=== PATIENT | male | born 1985 | race Caucasian/White ===

== ENCOUNTER 2017-07-30 15:17 | Inpatient (IN) | payer OTHER ==
[2017-07-30] MEDS ORDERED: ZOFRAN IV ONE (17:40)
[2017-07-30] MEDS ORDERED: ATIVAN IV ONE (17:49)
[2017-07-30] MEDS ORDERED: VITAMIN B-1 100 MG, FOLVITE 1 MG, INFUVITE 10 ML in NACL 0.9% 1000 ML 1,000 ML IV ONE (17:54)
--- NOTE | 2017-07-30 18:25 | Emergency Department Report ---
ED General Adult HPI - General Chief complaint: Chest Pain Stated complaint: SHAKING ALL OVER Time Seen by Provider: 07/30/17 17:53 Source: RN/MD, EMS Mode of arrival: Stretcher Limitations: Physical Limitation - History of Present Illness Initial comments: History was obtained by me in [place]ian. The patient tells me that he had chest pain perhaps for 1 minute and that is actually not why he came for evaluation. He states that he's been very tremulous since he stopped drinking earlier this morning. He complains of an occipital headache and kind of generalized aching. He has been nauseated. He complains of discomfort in his epigastric area which does not radiate. He states he's never been diagnosed with peptic ulcer disease, gastritis or pancreatitis. He does have persistent nausea and has been vomiting. His chest pain did not recur after that brief episode earlier today which was in the left chest area, nonpleuritic and nonradiating. The patient describes a history of a previous stroke. He does not inform me that he had any residual weakness or numbness. He seems to be telling me he has had visual change since the stroke. He denies any acute visual change today however. He states he was acting or feeling the way he is now when he was diagnosed with a stroke. This was several years ago. He admits alcohol dependency and drinks at least 15 cans of beer daily. -: Gradual, hour(s) Location: head Radiation: non-radiation Quality: aching Consistency: constant Improves with: none Worsens with: none Associated Symptoms: denies other symptoms, headaches, nausea/vomiting Treatments Prior to Arrival: none - Related Data Allergies Allergy/AdvReac Type Severity Reaction Status Date / Time No Known Allergies Allergy Unverified 07/30/17 17:35 ED Review of Systems ROS: Stated complaint: SHAKING ALL OVER Other details as noted in HPI Constitutional: other (shaky and tremulous). denies: chills, fever Eyes: denies: eye pain, eye discharge, vision change ENT: denies: ear pain, throat pain Respiratory: denies: cough, shortness of breath, wheezing Cardiovascular: chest pain. denies: palpitations Endocrine: no symptoms reported Gastrointestinal: as per HPI, abdominal pain, nausea, vomiting. denies: diarrhea Genitourinary: denies: urgency, dysuria Musculoskeletal: denies: back pain, joint swelling, arthralgia Skin: denies: rash, lesions Neurological: denies: headache, weakness, paresthesias Psychiatric: denies: anxiety, depression Hematological/Lymphatic: denies: easy bleeding, easy bruising ED Past Medical Hx - Past Medical History Previous Medical History?: (shaky and tremulous and shaky tremulousness) Hx CVA: Yes - Social History Substance Use Type: Alcohol ED Physical Exam - General Limitations: No Limitations General appearance: alert, in no apparent distress, other (very tremulous) - Head Head exam: Present: atraumatic, normocephalic - Eye Eye exam: Present: normal appearance, PERRL, EOMI, other (bidirectional disconjugate gaze. Appears consistent with strabismus. Denying diplopia.). Absent: scleral icterus - ENT ENT exam: Present: mucous membranes moist - Neck Neck exam: Present: normal inspection - Respiratory Respiratory exam: Present: normal lung sounds bilaterally. Absent: respiratory distress - Cardiovascular Cardiovascular Exam: Present: regular rate, normal rhythm. Absent: systolic murmur, diastolic murmur, rubs, gallop - GI/Abdominal GI/Abdominal exam: Present: soft, tenderness (mild epigastric discomfort to palpation only), normal bowel sounds. Absent: distended, guarding, rebound, rigid - Rectal Rectal exam: Present: deferred - Extremities Exam Extremities exam: Present: normal inspection - Back Exam Back exam: Present: normal inspection - Neurological Exam Neurological exam: Present: alert, oriented X3, CN II-XII intact (except as above indicated). Absent: motor sensory deficit - Psychiatric Psychiatric exam: Present: normal affect, anxious - Skin Skin exam: Present: warm, dry, intact, normal color. Absent: rash ED Course Vital Signs 07/30/17 17:28 Temperature 98.9 F Pulse Rate 109 H Respiratory 22 Rate Blood Pressure 132/87 [Left] O2 Sat by Pulse 98 Oximetry - Reevaluation(s) Reevaluation #1: Ativan, banana bag, antiemetic. CT the head will be obtained. Laboratory database still pending. Admission to medicine as anticipated. 07/30/17 18:50 Reevaluation #2: Patient with persistent tachycardia at 120. Will be admitted to hospitalist service. 07/30/17 19:22 ED Medical Decision Making - Lab Data Result diagrams: 07/30/17 17:54 07/30/17 17:54 Laboratory Results - last 24 hr 07/30/17 07/30/17 07/30/17 17:54 17:54 18:35 WBC 6.3 RBC 4.48 Hgb 14.4 Hct 40.2 MCV 90 MCH 32 MCHC 36 H RDW 15.9 H Plt Count 68 L Lymph % (Auto) 14.7 [place] % (Auto) 8.7 H Eos % (Auto) 0.2 Baso % (Auto) 0.2 Lymph # 0.9 L [place] # 0.5 Eos # 0.0 Baso # 0.0 Seg Neutrophils % 76.2 H Seg Neutrophils # 4.8 PT INR APTT Sodium 138 Potassium 3.7 Chloride 94.5 L Carbon Dioxide 23 Anion Gap 24 BUN 5 L Creatinine 0.6 L Estimated GFR > 60 BUN/Creatinine Ratio 8 Glucose 90 Calcium 9.3 Magnesium 1.90 Total Bilirubin 1.20 Direct Bilirubin 0.3 H Indirect Bilirubin 0.9 AST 173 H ALT 110 H Alkaline Phosphatase 123 Troponin T < 0.010 NT-Pro-B Natriuret Pep Total Protein 8.1 Albumin 4.8 Albumin/Globulin Ratio 1.5 Lipase 57 Urine Color Urine Turbidity Urine pH Ur Specific [place] Urine Protein Urine Glucose (UA) Urine Ketones Urine Blood Urine Nitrite Urine Bilirubin Urine Urobilinogen Ur Leukocyte Esterase Urine WBC (Auto) Urine RBC (Auto) U Epithel Cells (Auto) Urine Mucus 07/30/17 07/30/17 07/30/17 18:35 18:35 18:40 WBC RBC Hgb Hct MCV MCH MCHC RDW Plt Count Lymph % (Auto) [place] % (Auto) Eos % (Auto) Baso % (Auto) Lymph # [place] # Eos # Baso # Seg Neutrophils % Seg Neutrophils # PT 14.7 INR 1.09 APTT 25.2 Sodium Potassium Chloride Carbon Dioxide Anion Gap BUN Creatinine Estimated GFR BUN/Creatinine Ratio Glucose Calcium Magnesium Total Bilirubin Direct Bilirubin Indirect Bilirubin AST ALT Alkaline Phosphatase Troponin T NT-Pro-B Natriuret Pep 19.70 Total Protein Albumin Albumin/Globulin Ratio Lipase Urine Color Yellow Urine Turbidity Clear Urine pH 6.0 Ur Specific [place] 1.004 Urine Protein <15 mg/dl Urine Glucose (UA) 150 Urine Ketones Tr Urine Blood Sm Urine Nitrite Neg Urine Bilirubin Neg Urine Urobilinogen < 2.0 Ur Leukocyte Esterase Neg Urine WBC (Auto) < 1.0 Urine RBC (Auto) < 1.0 U Epithel Cells (Auto) < 1.0 Urine Mucus Few - EKG Data -: EKG Interpreted by Me EKG shows normal: sinus rhythm Rate: tachycardia - EKG Data Interpretation: no acute changes - Radiology Data interpreted by me: Chest x-ray and CT of the head: I don't see any acute process. Radiologist report is pending. Critical care attestation.: If time is entered above; I have spent that time in minutes in the direct care of this critically ill patient, excluding procedure time. ED Disposition Clinical Impression: Thrombocytopenia Alcohol withdrawal Qualifiers: Complication of substance-induced condition: with unspecified complication Qualified Code(s): F10.239 - Alcohol dependence with withdrawal, unspecified Chest pain Qualifiers: Chest pain type: unspecified Qualified Code(s): R07.9 - Chest pain, unspecified Abdominal pain Qualifiers: Abdominal location: epigastric Qualified Code(s): R10.13 - Epigastric pain Headache Qualifiers: Headache type: unspecified Headache chronicity pattern: acute headache Intractability: not intractable Qualified Code(s): R51 - Headache Disposition: DC-09 OP ADMIT IP TO THIS HOSP Is pt being admited?: Yes Does the pt Need Aspirin: No (contraindicated due to thrombocytopenia) Condition: Stable Instructions: Chest Pain (ED) Referrals: PRIMARY CARE, [Primary Care Provider] - 3-5 Days Time of Disposition: 19:16
[2017-07-30 18:33] LABS: Alanine Aminotransferase 110 units/L (7-56); Albumin 4.8 g/dL (3.9-5); Albumin/Globulin Ratio 1.5 %; Alkaline Phosphatase 123 units/L (35-129); Anion Gap 24 mmol/L; BUN/Creatinine Ratio 8; Bilirubin,Direct 0.3 mg/dL (0-0.2); Bilirubin,Indirect 0.9 mg/dL; Blood Urea Nitrogen 5 mg/dL (9-20); Calcium 9.3 mg/dL (8.4-10.2); Carbon Dioxide 23 mmol/L (22-30); Chloride 94.5 mmol/L (98-107); Glucose 90 mg/dL (75-100); Potassium 3.7 mmol/L (3.6-5.0); Sodium 138 mmol/L (137-145); Total Protein 8.1 g/dL (6.3-8.2)
[2017-07-30 18:37] LABS: Basophils % (Auto) 0.2 % (0.0-1.8); Eosinophils % (Auto) 0.2 % (0.0-4.3); Hematocrit 40.2 % (35.5-45.6); Hemoglobin 14.4 gm/dl (11.8-15.2); Mean Corpuscular HGB Conc 36 % (32-34); Mean Corpuscular Hemoglobin 32 pg (28-32); Mean Corpuscular Volume 90 fl (84-94); Red Blood Count 4.48 M/mm3 (3.65-5.03); Red Cell Distribution Width 15.9 % (13.2-15.2); White Blood Count 6.3 K/mm3 (4.5-11.0)
[2017-07-30 18:52] LABS: Urine Drugs of Abuse Note Disclamer
[2017-07-30 18:57] LABS: INR 1.09 (0.87-1.13)
[2017-07-30 18:58] LABS: Partial Thromboplastin Time 25.2 Sec. (24.2-36.6)
[2017-07-30 19:02] LABS: Bilirubin,Urine NEG (Negative); Blood,Urine SM (Negative); Ketones,Urine TR mg/dL (Negative); Leukocyte Esterase,Urine NEG (Negative); Mucus,Urine FEW /HPF; Nitrite,Urine NEG (Negative); Protein,Urine <15 mg/dL mg/dL (Negative); RBC,Urine < 1.0 /HPF (0.0-6.0); Urobilinogen,Urine < 2.0 mg/dL (<2.0); WBC,Urine < 1.0 /HPF (0.0-6.0)
[2017-07-30 19:03] LABS: Magnesium 1.9 mg/dL (1.7-2.3)
[2017-07-30 19:09] LABS: Platelet Count 68 K/mm3 (140-440)
[2017-07-30] MEDS ORDERED: PEPCID IV ONE (19:13)
--- NOTE | 2017-07-30 19:47 | Cat Scan Report ---
FINAL REPORT EXAM: CT HEAD/BRAIN WO CON HISTORY: headache TECHNIQUE: CT was performed from the foramen magnum through the vertex in the axial plane without the use of intravenous contrast. PRIORS: None. FINDINGS: The barraza/white matter attenuation pattern is normal. There is no mass lesion or mass effect. There are no abnormal extra-axial fluid collections. There is no evidence of acute intracranial hemorrhage or infarct. The ventricles are of normal size and configuration. The skull and orbits are unremarkable. The visualized paranasal sinuses are clear. IMPRESSION: Normal CT of the head.
--- NOTE | 2017-07-30 20:23 | History and Physical Report ---
History of Present Illness Chief complaint: I cant stop shaking History of present illness: 32 YO Male with ETOH Abuse, CVA presents to ED for evaluation. Pt states that he normally drinks approximately 15 cans of beer daily, and that he stopped drinking this morning. Pt states that since this morning, he has experienced uncontrolled shaking, body aches, headache, nausea, and epigastric discomfort which does not radiate. Pt acknowledges persistent nausea over the past 2 months as well as generalized weakness. Pt denies fever, chills, CP, palpitations, Syncope, Vision changes, Trauma, BRBPR, Unintentional weight loss , night sweats, productive cough,or recent ill contacts. Pt denies audio/visual hallucinations. Pt seen and evaluated in ED and found to be tachycardic, tremulous, with confusion and in distress. Pt is able to protect his airway. Past History Past Medical History: other (ETHO Abuse) Past Surgical History: No surgical history (reviewed) Social history: single, lives with family, alcohol abuse. denies: prescription drug abuse, IV drug use Family history: no significant family history (reviewed) Medications and Allergies Allergies Allergy/AdvReac Type Severity Reaction Status Date / Time No Known Allergies Allergy Unverified 07/30/17 17:35 Home Medications Medication Instructions Recorded Confirmed Last Taken Type No Known Home Medications [No 07/30/17 07/30/17 Unknown History Reported Home Medications] Active Meds: Active Medications Thiamine HCl 100 mg/ Folic Acid 1 mg/ Multivitamins/Minerals 10 ml/ Sodium Chloride 1,011.2 mls @ 250 mls/hr IV ONCE.ED ONE Stop: 07/30/17 21:56 Last Admin: 07/30/17 19:20 Dose: 250 mls/hr Review of Systems Constitutional: no weight gain, no fever, no chills, no sweats Ears, nose, mouth and throat: no ear pain, no ear discharge, no tinnitis, no decreased hearing, no nose pain, no nasal congestion, no nasal discharge, no sinus pain Cardiovascular: rapid/irregular heart beat, no chest pain, no orthopnea, no palpitations, no edema Respiratory: no cough, no cough with sputum, no excessive sputum, no hemoptysis , no shortness of breath, no dyspnea on exertion Gastrointestinal: nausea, no constipation, no change in bowel habits, no hematemesis, no coffee ground emesis Genitourinary Male: no dysuria, no hematuria, no flank pain, no discharge, no urinary frequency, no urinary hesitancy Rectal: no pain, no incontinence, no bleeding Musculoskeletal: no neck stiffness, no neck pain, no shooting arm pain, no arm numbness/tingling, no low back pain, no shooting leg pain Integumentary: no rash, no pruritis, no redness, no sores, no wounds, no jaundice Neurological: weakness, tremors, headaches, confusion, no head injury, no transient paralysis, no paralysis, no parathesias, no numbness, no tingling, no seizures Psychiatric: no memory loss, no change in sleep habits, no sleep disturbances, no insomnia, no hypersomnia Endocrine: no cold intolerance, no heat intolerance, no polyphagia Hematologic/Lymphatic: no easy bruising, no easy bleeding Allergic/Immunologic: no urticaria, no allergic rhinitis, no wheezing Exam - Constitutional Vitals: Temp Pulse Resp BP Pulse Ox 97.9 F 102 H 20 130/91 97 07/30/17 19:15 07/30/17 19:15 07/30/17 19:15 07/30/17 19:15 07/30/17 19:15 General appearance: Present: mild distress, disheveled - EENT Eyes: Present: PERRL ENT: hearing intact, clear oral mucosa - Neck Neck: Present: supple, normal ROM - Respiratory Respiratory effort: normal Respiratory: bilateral: CTA - Cardiovascular Rhythm: regular (tachycardic) - Extremities Extremities: pulses symmetrical, No edema Peripheral Pulses: within normal limits - Abdominal General gastrointestinal: Present: soft, non-tender, non-distended, normal bowel sounds Male genitourinary: Present: normal - Integumentary Integumentary: Present: clear, dry, clammy, decreased turgor - Musculoskeletal Musculoskeletal: gait normal, strength equal bilaterally - Psychiatric Psychiatric: agitated - Neurologic Neurologic: CNII-XII intact, moves all extremities Results - Labs CBC & Chem 7: 07/30/17 17:54 07/30/17 17:54 Labs: Abnormal lab results 07/30/17 07/30/17 Range/Units 17:54 17:54 MCHC 36 H (32-34) % RDW 15.9 H (13.2-15.2) % Plt Count 68 L (140-440) K/mm3 [place] % (Auto) 8.7 H (0.0-7.3) % Lymph # 0.9 L (1.2-5.4) K/mm3 Seg Neutrophils % 76.2 H (40.0-70.0) % Chloride 94.5 L (98-107) mmol/L BUN 5 L (9-20) mg/dL Creatinine 0.6 L (0.8-1.5) mg/dL Direct Bilirubin 0.3 H (0-0.2) mg/dL AST 173 H (5-40) units/L ALT 110 H (7-56) units/L Assessment and Plan - Patient Problems (1) Alcohol withdrawal Current Visit: Yes Status: Acute Qualifiers: Complication of substance-induced condition: with unspecified complication Qualified Code(s): F10.239 - Alcohol dependence with withdrawal, unspecified Plan to address problem: CIWA protocol, Thiamine, Folic Acid, Multivitamin, diet as tolerated, (2) Alcoholic cirrhosis of liver Current Visit: Yes Status: Acute Qualifiers: Ascites presence: A Plan to address problem: Pt counseled regarding ETOH cessation, Monitor LFT, supportive care. (3) Agitation Current Visit: Yes Status: Acute Plan to address problem: Ativan prn, neuro checks, CIWA protocol (4) Tachycardia Current Visit: Yes Status: Acute Plan to address problem: IVF resuscitation, treat ETOH withdrawl, supportive care. (5) Thrombocytopenia Current Visit: Yes Status: Acute Plan to address problem: Secondary to chronic etoh abuse, No active bleeding at this time, (6) Alcoholic gastritis Current Visit: Yes Status: Acute Qualifiers: Chronicity: C Gastritis bleeding: G Plan to address problem: PPI therapy, sucrafate, soft diet, advance as tolerated. (7) DVT prophylaxis Current Visit: Yes Status: Acute
[2017-07-30] MEDS ORDERED: PROVENTIL IH PRN (20:28)
[2017-07-30] MEDS ORDERED: ZOFRAN IV PRN (20:28)
[2017-07-30] MEDS: PEPCID PO SCH (22:30)
[2017-07-30] MEDS ORDERED: ATIVAN IV PRN (23:25)
[2017-07-31] MEDS ORDERED: CARAFATE PO SCH (06:34)
[2017-07-31] MEDS: TYLENOL PO PRN (08:06)
[2017-07-31] MEDS: ATIVAN IV PRN ×2 (08:07→23:29)
[2017-07-31] MEDS: CARAFATE PO SCH ×4 (08:10→23:19)
[2017-07-31] MEDS: PEPCID PO SCH ×2 (09:46→23:20)
--- NOTE | 2017-07-31 11:20 | Progress Note ---
Assessment and Plan Assessment and plan: 32 YO Male with ETOH Abuse, CVA presents to ED for evaluation. Pt states that he normally drinks approximately 15 cans of beer daily, he presented with uncontrolled shaking nervousness and agitation that started after he stopped drinking Alcohol withdrawal/delirium tremens CIWA protocol, Thiamine, Folic Acid, Multivitamin, diet as tolerated, Metabolic encephalopathy due to etoh withdrawal, rx underyling cause, improving Thrombocytopenia This is most likely due to chronic alcohol abuse, stable. Alcoholic gastritis now resolved, no further treatment indicated History Interval history: Patient continues to be tremulous, complains of headache. Complains of feeling stressed out and agitated Hospitalist Physical - Physical exam Narrative exam: General.: Appears well, no distress, nontoxic HEENT: Moist mucous membranes, extraocular muscles intact, no lymphadenopathy Neck: supple Cardiac: S1-S2 heard Lungs: clear to auscultation bilaterally Abdomen: soft , nontender, nondistended, bowel sounds positive Extremities: no edema clubbing or cyanosis Skin: no rash or lesions Neurologic: no gross focal deficits Patient has tremors in both hands, facial and lingular fasciculations Psych: appropriate behavior, appropriate mood, corporative, judgment intact - Constitutional Vitals: Temp Pulse Resp BP Pulse Ox 98.4 F 97 H 16 113/74 99 07/31/17 08:28 07/31/17 08:25 07/31/17 09:06 07/31/17 08:25 07/31/17 08:34 General appearance: Present: mild distress, disheveled Results - Labs CBC & Chem 7: 07/30/17 17:54 08/01/17 10:13 Labs: Laboratory Last Values WBC 6.3 K/mm3 (4.5-11.0) 07/30/17 17:54 RBC 4.48 M/mm3 (3.65-5.03) 07/30/17 17:54 Hgb 14.4 gm/dl (11.8-15.2) 07/30/17 17:54 Hct 40.2 % (35.5-45.6) 07/30/17 17:54 MCV 90 fl (84-94) 07/30/17 17:54 MCH 32 pg (28-32) 07/30/17 17:54 MCHC 36 % (32-34) H 07/30/17 17:54 RDW 15.9 % (13.2-15.2) H 07/30/17 17:54 Plt Count 68 K/mm3 (140-440) L 07/30/17 17:54 Lymph % (Auto) 14.7 % (13.4-35.0) 07/30/17 17:54 [place] % (Auto) 8.7 % (0.0-7.3) H 07/30/17 17:54 Eos % (Auto) 0.2 % (0.0-4.3) 07/30/17 17:54 Baso % (Auto) 0.2 % (0.0-1.8) 07/30/17 17:54 Lymph # 0.9 K/mm3 (1.2-5.4) L 07/30/17 17:54 [place] # 0.5 K/mm3 (0.0-0.8) 07/30/17 17:54 Eos # 0.0 K/mm3 (0.0-0.4) 07/30/17 17:54 Baso # 0.0 K/mm3 (0.0-0.1) 07/30/17 17:54 Seg Neutrophils % 76.2 % (40.0-70.0) H 07/30/17 17:54 Seg Neutrophils # 4.8 K/mm3 (1.8-7.7) 07/30/17 17:54 PT 14.7 Sec. (12.2-14.9) 07/30/17 18:35 INR 1.09 (0.87-1.13) 07/30/17 18:35 APTT 25.2 Sec. (24.2-36.6) 07/30/17 18:35 Sodium 138 mmol/L (137-145) 07/30/17 17:54 Potassium 3.7 mmol/L (3.6-5.0) 07/30/17 17:54 Chloride 94.5 mmol/L (98-107) L 07/30/17 17:54 Carbon Dioxide 23 mmol/L (22-30) 07/30/17 17:54 Anion Gap 24 mmol/L 07/30/17 17:54 BUN 5 mg/dL (9-20) L 07/30/17 17:54 Creatinine 0.6 mg/dL (0.8-1.5) L 07/30/17 17:54 Estimated GFR > 60 ml/min 07/30/17 17:54 BUN/Creatinine Ratio 8 % 07/30/17 17:54 Glucose 90 mg/dL (75-100) 07/30/17 17:54 Calcium 9.3 mg/dL (8.4-10.2) 07/30/17 17:54 Magnesium 1.90 mg/dL (1.7-2.3) 07/30/17 18:35 Total Bilirubin 1.20 mg/dL (0.1-1.2) 07/30/17 17:54 Direct Bilirubin 0.3 mg/dL (0-0.2) H 07/30/17 17:54 Indirect Bilirubin 0.9 mg/dL 07/30/17 17:54 AST 173 units/L (5-40) H 07/30/17 17:54 ALT 110 units/L (7-56) H 07/30/17 17:54 Alkaline Phosphatase 123 units/L (35-129) 07/30/17 17:54 Ammonia 36.0 umol/L (25-60) 07/30/17 18:35 Troponin T < 0.010 ng/mL (0.00-0.029) 07/30/17 17:54 NT-Pro-B Natriuret Pep 19.70 pg/mL (0-450) 07/30/17 18:35 Total Protein 8.1 g/dL (6.3-8.2) 07/30/17 17:54 Albumin 4.8 g/dL (3.9-5) 07/30/17 17:54 Albumin/Globulin Ratio 1.5 % 07/30/17 17:54 Lipase 57 units/L (13-60) 07/30/17 18:35 Urine Color Yellow (Yellow) 07/30/17 18:40 Urine Turbidity Clear (Clear) 07/30/17 18:40 Urine pH 6.0 (5.0-7.0) 07/30/17 18:40 Ur Specific [place] 1.004 (1.003-1.030) 07/30/17 18:40 Urine Protein <15 mg/dl mg/dL (Negative) 07/30/17 18:40 Urine Glucose (UA) 150 mg/dL (Negative) 07/30/17 18:40 Urine Ketones Tr mg/dL (Negative) 07/30/17 18:40 Urine Blood Sm (Negative) 07/30/17 18:40 Urine Nitrite Neg (Negative) 07/30/17 18:40 Urine Bilirubin Neg (Negative) 07/30/17 18:40 Urine Urobilinogen < 2.0 mg/dL (<2.0) 07/30/17 18:40 Ur Leukocyte Esterase Neg (Negative) 07/30/17 18:40 Urine WBC (Auto) < 1.0 /HPF (0.0-6.0) 07/30/17 18:40 Urine RBC (Auto) < 1.0 /HPF (0.0-6.0) 07/30/17 18:40 U Epithel Cells (Auto) < 1.0 /HPF (0-13.0) 07/30/17 18:40 Urine Mucus Few /HPF 07/30/17 18:40 Urine Opiates Screen Presumptive negative 07/30/17 18:40 Urine Methadone Screen Presumptive negative 07/30/17 18:40 Ur Barbiturates Screen Presumptive negative 07/30/17 18:40 Ur Phencyclidine Scrn Presumptive negative 07/30/17 18:40 Ur Amphetamines Screen Presumptive negative 07/30/17 18:40 U Benzodiazepines Scrn Presumptive negative 07/30/17 18:40 Urine Cocaine Screen Presumptive negative 07/30/17 18:40 U Marijuana (THC) Screen Presumptive negative 07/30/17 18:40 Drugs of Abuse Note Disclamer 07/30/17 18:40
[2017-07-31] MEDS ORDERED: Fluarix Quad 2017-2018(36 MOS+) IM ONE (12:00)
[2017-07-31] MEDS: D5/0.45NS 1,000 ML IV SCH (13:34)
[2017-07-31] MEDS: FOLVITE PO SCH (13:34)
--- NOTE | 2017-07-31 15:40 | XRay Report ---
Single view chest: History: Hypertension. Findings: Normal cardiomediastinal silhouette. Trachea is midline. No consolidation, pneumothorax or pleural effusion. Impression: No acute cardiopulmonary findings. He
--- NOTE | 2017-07-31 17:47 | Progress Note ---
Hospitalist Physical - Constitutional Vitals: Temp Pulse Resp BP Pulse Ox 98.6 F 85 20 117/76 97 07/31/17 16:27 07/31/17 16:27 07/31/17 16:27 07/31/17 16:27 07/31/17 16:27 General appearance: Present: mild distress, disheveled Results - Labs CBC & Chem 7: 07/30/17 17:54 07/30/17 17:54 Labs: Laboratory Last Values WBC 6.3 K/mm3 (4.5-11.0) 07/30/17 17:54 RBC 4.48 M/mm3 (3.65-5.03) 07/30/17 17:54 Hgb 14.4 gm/dl (11.8-15.2) 07/30/17 17:54 Hct 40.2 % (35.5-45.6) 07/30/17 17:54 MCV 90 fl (84-94) 07/30/17 17:54 MCH 32 pg (28-32) 07/30/17 17:54 MCHC 36 % (32-34) H 07/30/17 17:54 RDW 15.9 % (13.2-15.2) H 07/30/17 17:54 Plt Count 68 K/mm3 (140-440) L 07/30/17 17:54 Lymph % (Auto) 14.7 % (13.4-35.0) 07/30/17 17:54 [place] % (Auto) 8.7 % (0.0-7.3) H 07/30/17 17:54 Eos % (Auto) 0.2 % (0.0-4.3) 07/30/17 17:54 Baso % (Auto) 0.2 % (0.0-1.8) 07/30/17 17:54 Lymph # 0.9 K/mm3 (1.2-5.4) L 07/30/17 17:54 [place] # 0.5 K/mm3 (0.0-0.8) 07/30/17 17:54 Eos # 0.0 K/mm3 (0.0-0.4) 07/30/17 17:54 Baso # 0.0 K/mm3 (0.0-0.1) 07/30/17 17:54 Seg Neutrophils % 76.2 % (40.0-70.0) H 07/30/17 17:54 Seg Neutrophils # 4.8 K/mm3 (1.8-7.7) 07/30/17 17:54 PT 14.7 Sec. (12.2-14.9) 07/30/17 18:35 INR 1.09 (0.87-1.13) 07/30/17 18:35 APTT 25.2 Sec. (24.2-36.6) 07/30/17 18:35 Sodium 138 mmol/L (137-145) 07/30/17 17:54 Potassium 3.7 mmol/L (3.6-5.0) 07/30/17 17:54 Chloride 94.5 mmol/L (98-107) L 07/30/17 17:54 Carbon Dioxide 23 mmol/L (22-30) 07/30/17 17:54 Anion Gap 24 mmol/L 07/30/17 17:54 BUN 5 mg/dL (9-20) L 07/30/17 17:54 Creatinine 0.6 mg/dL (0.8-1.5) L 07/30/17 17:54 Estimated GFR > 60 ml/min 07/30/17 17:54 BUN/Creatinine Ratio 8 % 07/30/17 17:54 Glucose 90 mg/dL (75-100) 07/30/17 17:54 Calcium 9.3 mg/dL (8.4-10.2) 07/30/17 17:54 Magnesium 1.90 mg/dL (1.7-2.3) 07/30/17 18:35 Total Bilirubin 1.20 mg/dL (0.1-1.2) 07/30/17 17:54 Direct Bilirubin 0.3 mg/dL (0-0.2) H 07/30/17 17:54 Indirect Bilirubin 0.9 mg/dL 07/30/17 17:54 AST 173 units/L (5-40) H 07/30/17 17:54 ALT 110 units/L (7-56) H 07/30/17 17:54 Alkaline Phosphatase 123 units/L (35-129) 07/30/17 17:54 Ammonia 36.0 umol/L (25-60) 07/30/17 18:35 Troponin T < 0.010 ng/mL (0.00-0.029) 07/30/17 17:54 NT-Pro-B Natriuret Pep 19.70 pg/mL (0-450) 07/30/17 18:35 Total Protein 8.1 g/dL (6.3-8.2) 07/30/17 17:54 Albumin 4.8 g/dL (3.9-5) 07/30/17 17:54 Albumin/Globulin Ratio 1.5 % 07/30/17 17:54 Lipase 57 units/L (13-60) 07/30/17 18:35 Urine Color Yellow (Yellow) 07/30/17 18:40 Urine Turbidity Clear (Clear) 07/30/17 18:40 Urine pH 6.0 (5.0-7.0) 07/30/17 18:40 Ur Specific [place] 1.004 (1.003-1.030) 07/30/17 18:40 Urine Protein <15 mg/dl mg/dL (Negative) 07/30/17 18:40 Urine Glucose (UA) 150 mg/dL (Negative) 07/30/17 18:40 Urine Ketones Tr mg/dL (Negative) 07/30/17 18:40 Urine Blood Sm (Negative) 07/30/17 18:40 Urine Nitrite Neg (Negative) 07/30/17 18:40 Urine Bilirubin Neg (Negative) 07/30/17 18:40 Urine Urobilinogen < 2.0 mg/dL (<2.0) 07/30/17 18:40 Ur Leukocyte Esterase Neg (Negative) 07/30/17 18:40 Urine WBC (Auto) < 1.0 /HPF (0.0-6.0) 07/30/17 18:40 Urine RBC (Auto) < 1.0 /HPF (0.0-6.0) 07/30/17 18:40 U Epithel Cells (Auto) < 1.0 /HPF (0-13.0) 07/30/17 18:40 Urine Mucus Few /HPF 07/30/17 18:40 Urine Opiates Screen Presumptive negative 07/30/17 18:40 Urine Methadone Screen Presumptive negative 07/30/17 18:40 Ur Barbiturates Screen Presumptive negative 07/30/17 18:40 Ur Phencyclidine Scrn Presumptive negative 07/30/17 18:40 Ur Amphetamines Screen Presumptive negative 07/30/17 18:40 U Benzodiazepines Scrn Presumptive negative 07/30/17 18:40 Urine Cocaine Screen Presumptive negative 07/30/17 18:40 U Marijuana (THC) Screen Presumptive negative 07/30/17 18:40 Drugs of Abuse Note Disclamer 07/30/17 18:40
[2017-08-01] MEDS: D5/0.45NS 1,000 ML IV SCH (06:10)
[2017-08-01] MEDS: CARAFATE PO SCH (08:44)
[2017-08-01] MEDS: TYLENOL PO PRN (10:20)
[2017-08-01] MEDS: FOLVITE PO SCH (10:38)
[2017-08-01] MEDS: PEPCID PO SCH (10:38)
[2017-08-01 11:18] LABS: BUN/Creatinine Ratio 10; Blood Urea Nitrogen 7 mg/dL (9-20); Calcium 9.1 mg/dL (8.4-10.2); Carbon Dioxide 22 mmol/L (22-30); Glucose 112 mg/dL (75-100)
[2017-08-01 11:19] LABS: Anion Gap 23 mmol/L; Chloride 103.7 mmol/L (98-107); Potassium 4.2 mmol/L (3.6-5.0); Sodium 144 mmol/L (137-145)
--- NOTE | 2017-08-01 14:05 | Discharge Summary ---
Providers - Providers Date of Admission: 07/30/17 20:28 Attending physician: SANDI GIFFORD MD Primary care physician: [employer]PER[employer]OR Hospitalization Condition: Stable Hospital course: 32-year-old man with a past medical history of alcohol abuse, drinks 15 cans of beer daily. He presents feeling sick after he stopped drinking. Patient said that physician of alcohol with intentional. He presented uncontrolled shaking abdominal pain headache and confusion. He was admitted for alcohol withdrawal, he was treated with CIWA protocol and IV fluids. Patient clinically improved. He vows that he will stop drinking in the future. And he was discharged home after he was counseled. Diagnoses Alcohol withdrawal Delirium tremens Metabolic encephalopathy Alcoholic gastritis Disposition: - TO HOME OR SELFCARE Time spent for discharge: 35 minutes Core Measure Documentation - Palliative Care Palliative Care/ Comfort Measures: Not Applicable - Core Measures Any of the following diagnoses?: none Exam - Constitutional Vitals: Temp Pulse Resp BP Pulse Ox 98.8 F 90 19 109/61 96 08/01/17 08:01 08/01/17 08:01 08/01/17 08:01 08/01/17 08:01 08/01/17 08:01 General appearance: Present: no acute distress, well-nourished - EENT Eyes: Present: PERRL ENT: hearing intact, clear oral mucosa - Neck Neck: Present: supple, normal ROM - Respiratory Respiratory effort: normal Respiratory: bilateral: CTA - Cardiovascular Heart Sounds: Present: S1 & S2. Absent: rub, click - Extremities Extremities: pulses symmetrical, No edema Peripheral Pulses: within normal limits - Abdominal General gastrointestinal: Present: soft, non-tender, non-distended, normal bowel sounds Male genitourinary: Present: normal - Integumentary Integumentary: Present: clear, warm, dry - Musculoskeletal Musculoskeletal: gait normal, strength equal bilaterally - Psychiatric Psychiatric: appropriate mood/affect, intact judgment & insight - Neurologic Neurologic: CNII-XII intact, moves all extremities Plan Follow up with: PRIMARY CAREMD [Primary Care Provider] - 3-5 Days [facility] [Outside] - 7 Days
[2017-08-01 17:16] VITALS: BP 127/69
== END 2017-08-01 19:00 | disposition home or self-care (01) | DRG 896 ==
LOC: ED 15:17 → 3A 20:28
PROVIDERS: ADMIT Internal Medicine; ATTEND Internal Medicine
DX: F10.239 Alcohol dependence with withdrawal, unspecified (principal); G93.41 Metabolic encephalopathy; K70.30 Alcoholic cirrhosis of liver without ascites; D69.6 Thrombocytopenia, unspecified; R45.1 Restlessness and agitation; K29.20 Alcoholic gastritis without bleeding
CPT/HCPCS: 36415; 70450; 71010; 80048; 80053; 80074; 80307; 81001; 82140; 83690; 83735; 83880; 84100; 84484; 85025; 85610; 85730; 90686; 93005; 93010; 96365; 96375; 99285; J2060; J2405; J3411; J7030